=== PATIENT | male | born 1965 ===

== ENCOUNTER 2019-10-01 16:36 | Emergency (ER) | payer SELFPAY ==
[2019-10-01 17:17] LABS: Hemoglobin 17.4 g/dL (14.0-18.0); Mean Corpuscular HGB CONC 31.8 g/dL (32.0-36.0); Mean Corpuscular Hemoglobin 28.2 pg (27.0-31.0); Mean Corpuscular Volume 88.8 fL (78.0-98.0); Mean Platelet Volume 7.5 fL (7.4-10.4); Platelet Count 193 thou/uL (130-400); RBC Distribution Width 13.5 % (11.5-14.5); Red Blood Cell (RBC) Count 6.18 mill/uL (4.70-6.10)
--- NOTE | 2019-10-01 17:21 | RAD ---
XR Chest 1 View Portable HISTORY: Syncope, dizziness COMPARISON: None FINDINGS: The heart size is normal. The lungs are well expanded without focal areas of consolidation, pneumothorax or pleural effusions. IMPRESSION: No radiographic evidence of acute cardiopulmonary process.
[2019-10-01 17:41] LABS: Band 7 % (5-11); Lymphocytes 10 % (21-51); MDiff Complete? YES; Monocytes 11 % (0-10); Neutrophil 67 % (42-75); Platelet Morphology Comment Appears Adequate; RBC Morphology Normal; Reactive Lymphocytes 2 % (0-10)
[2019-10-01 17:43] LABS: ALT (SGPT) 45 U/L (8-55); AST (SGOT) 33 U/L (5-34); Albumin 4.6 g/dL (3.5-5.0); Alkaline Phosphatase 79 U/L (40-110); Anion Gap 13 mmol/L (10-20); BUN (Urea Nitrogen) 23 mg/dL (8.4-25.7); Bilirubin, Total 0.7 mg/dL (0.2-1.2); Calc. Creatinine Clearance 0 mL/min (70-130); Calcium 9.4 mg/dL (7.8-10.44); Carbon Dioxide 26 mmol/L (22-29); Chloride 103 mmol/L (98-107); Estimated GFR-MDRD 48; Globulin 3.4 g/dL (2.4-3.5); Glucose 115 mg/dL (70-105); Potassium 3.7 mmol/L (3.5-5.1); Sodium 138 mmol/L (136-145)
== END 2019-10-01 18:55 | disposition home or self-care (01) ==
LOC: ERS 16:36
DX: E86.0 Dehydration (principal); R55 Syncope and collapse
CPT/HCPCS: 71045; 80053; 84484; 85025; 93005; 96360